=== PATIENT | female | born 1995 | race Caucasian/White ===

== ENCOUNTER 2017-02-03 10:33 | Emergency (ER) | payer OTHER ==
[2017-02-03 11:48] VITALS: BP 100/64
[2017-02-03] MEDS ORDERED: Betamethasone Dip 0.05% ON(NF) 45 GM TUBE TOPICAL ONE (11:50)
--- NOTE | 2017-02-03 13:57 | ED ---
Skin Complaint - HPI Summary HPI Summary: Patient is a 21yo otherwise healthy female BIBA from [facility] with CC of diffuse painful rash. She states the rash began 2 weeks ago, although she has been at [facility] for 6 weeks. She has been using their detergent but denies soap or lotion change. Denies medication change or environmental change since 2 weeks prior. She denies history eczema, allergies, contact dermatitis, or other known skin conditions. She has never had MRSA or abscesses. She has been using a steroid cream given to her by the provider at [facility], but she states it has progressively gotten worse over the last 2 weeks. The areas are located in the folds of the skin most prominently on the extremities and are red, dry and burning. She denies contact with metals or insects. - History of Current Complaint Chief Complaint: EDRashSkinAbscess Time Seen by Provider: 02/03/17 10:48 Stated Complaint: RASH Hx Obtained From: Patient Onset/Duration: Started Weeks Ago Skin Exposure Onset/Duration: Weeks Ago Timing: Constant Onset Severity: Mild Current Severity: Mild Pain Intensity: 0 Pain Scale Used: 0-10 Numeric Skin Location: Diffuse Character: Pain, Redness, Raised, Painful Aggravating Symptom(s): Wet Conditions, Showering, Touch Associated Signs & Symptoms: Negative - Allergy/Home Medications Allergies/Adverse Reactions: Allergies Allergy/AdvReac Type Severity Reaction Status Date / Time Amoxicillin Allergy Unknown Verified 02/03/17 10:49 Reaction Details PMH/Surg Hx/FS Hx/Imm Hx Previously Healthy: Yes - Immunization History Hx Pertussis Vaccination: No Immunizations Up to Date: No Infectious Disease History: No Infectious Disease History: Denies: Traveled Outside the [place] in Last 30 Days - Social History Occupation: Unemployed Lives: With Family Alcohol Use: None Hx Substance Use: No Substance Use Type: Reports: None Hx Tobacco Use: No Smoking Status (MU): Never Smoked Tobacco Review of Systems Constitutional: Negative Eyes: Negative Cardiovascular: Negative Respiratory: Negative Positive: no symptoms reported, see HPI Musculoskeletal: Negative Positive: Rash Neurological: Negative All Other Systems Reviewed And Are Negative: Yes Physical Exam Triage Information Reviewed: Yes Vital Signs On Initial Exam: Initial Vitals Temp Pulse Resp BP Pulse Ox 98.3 F 68 16 102/56 96 02/03/17 10:49 02/03/17 10:49 02/03/17 10:49 02/03/17 10:49 02/03/17 10:49 Vital Signs Reviewed: Yes Appearance: Positive: Well-Appearing, No Pain Distress, Well-Nourished Skin: Positive: Warm, Skin Color Reflects Adequate Perfusion, Other - erythematous, chapped, dry, painful, slightly raised plaques over flexor surfaces of arms, knees, nape of neck, between the folds of the inner thighs with fissures and to the outside of the left upper arm. Head/Face: Positive: Normal Head/Face Inspection Eyes: Positive: EOMI, CHARITY, Conjunctiva Clear Neck: Positive: Supple, No Lymphadenopathy Respiratory/Lung Sounds: Positive: Clear to Auscultation, Breath Sounds Present Cardiovascular: Positive: Normal, RRR, Pulses are Symmetrical in both Upper and Lower Extremities Musculoskeletal: Positive: Normal, Strength/ROM Intact Neurological: Positive: Alert, Oriented to Person Place, Time, Speech Normal Psychiatric: Positive: Normal AVPU Assessment: Alert Diagnostics - Vital Signs Vital Signs Temp Pulse Resp BP Pulse Ox 02/03/17 11:48 69 16 100/64 96 02/03/17 10:51 98.3 F 68 16 102/56 97 02/03/17 10:49 98.3 F 68 16 102/56 96 - Laboratory Lab Statement: Any lab studies that have been ordered have been reviewed, and results considered in the medical decision making process. Course/Dx - Course Course Of Treatment: CC of erythematous, chapped, dry, painful, slightly raised plaques over flexor surfaces of arms, knees, nape of neck, between the folds of the inner thighs with fissures and to the outside of the left upper arm x 2 weeks with worsening symptoms. Not improving with cream (unknown name of cream ) given from [facility]. Will switch to ointment d/t chapped and fissuring skin. Betamethasone proproprionate .5% is medium to high potency steroid. Encouraged use 4x daily on skin except face and neck. Will need to follow up with dermatology if symptoms persist. - Differential Diagnoses - Skin Complaint Differential Diagnoses: Allergic Reaction, Contact Dermatitis, Eczema, Medication; Adverse Reaction - Diagnoses Provider Diagnoses: Irritant dermatitis Discharge - Discharge Plan Condition: Stable Disposition: HOME Patient Education Materials: Eczema (ED), Dermatitis (ED) Forms: *Gen. Provider Communication Referrals: No Primary Care Phys,NOPCP [Primary Care Provider] - Additional Instructions: Use the Ointment 4 times daily on areas except face and neck until you notice improvement with your symptoms. Follow up with a supervisor [facility] if symptoms continue. [facility] [address], [address] [place] [address] After showering or bathing, dry skin well, then apply ointment.
== END 2017-02-03 12:10 | disposition home or self-care (01) ==
LOC: ED 10:33
DX: L30.9 Dermatitis, unspecified (principal); R21 Rash and other nonspecific skin eruption
CPT/HCPCS: 99282; A9270-GY